=== PATIENT | female | born 1980 | race Caucasian/White ===

== ENCOUNTER 2018-11-24 19:04 | Emergency (ER) | payer MEDICAID ==
[~2018-11-24] VITALS: Ht 170.2 cm; Wt 118.0 kg
[2018-11-24 19:28] VITALS: BP 136/88
== END 2018-11-24 21:46 | disposition left against medical advice (07) ==
LOC: ER 19:04
DX: K08.89 Other specified disorders of teeth and supporting structures (principal); Z53.21 Procedure and treatment not carried out due to patient leaving prior to being seen by health care provider